=== PATIENT | female | born 1980 | race Caucasian/White ===

== ENCOUNTER 2016-09-10 19:59 | Inpatient (IN) | payer OTHER ==
--- NOTE | ~2016-09-10 | CO ---
Unit #: [id number] #: [id number] Patient: PEG MURDOCK [id number] [place] [address] [id number] MR#: [id number] NAME: PEG MURDOCK ROOM: P122 Age: 36 Sex: F Admission Date: 09/10/2016 : 1980 Attending Physician: George Rivera M.D. Primary Care Physician: Sailaja Schwab M.D. Consultation Date: 09/11/2016 CONSULTATION REPORT SUBJECTIVE Peg Patterson is a 36-year-old who gives history of migraine headaches. She usually takes Tylenol and has not been prescribed anything more for these headaches. On one prior admission, she was started on Fioricet and she is requesting that at this time. We have been asked to assess and give recommendations. Headaches are described as starting in her neck as tension working their way up over to involve her whole head. She denies any visual problems or light sensitivity. She has no nausea or vomiting associated with these headaches. OBJECTIVE Please see H and P dated 09/11/2016. ASSESSMENT History of migraine headaches. PLAN The patient has Tylenol p.r.n. We will continue this. Dictated by... Kinsey Borja PAltonAMagaly. for Dillon Renae/charo TD: 09/15/2016 13:10 JOB #: [id number] CONSULTATION REPORT Page 1 of 1 X Kinsey Borja CONSULTATION REPORT
--- NOTE | ~2016-09-10 | PN ---
Unit #: [id number] #: [id number] Patient: PEG PATEL [id number] [facility] [address] [place] [address] [id number] MR#: [id number] NAME: PEG PATEL ROOM: P122 Age: 36 Sex: F Admission Date: 09/10/2016 : 1980 Attending Physician: George Rivera M.D. Admitting Physician: George Rivera M.D. Primary Care Physician: Dillon Taylor PROGRESS NOTES DATE 09/13/2016 DISCUSSION Ms. Patel is a 36-year-old white female who was seen today and chart was reviewed and case was discussed with the staff. She reports doing much better and has been showing improvement in her depression and anxiety. Meanwhile, she has been cooperative with treatment recommendations and has been taking medications and tolerating them fairly well with no reported side effects. MENTAL STATUS EXAMINATION Young white female who was casually dressed with fair personal hygiene and appears to be in no acute distress or discomfort. She was awake and alert on interaction with intact orientation. Her mood was anxious and depressed with congruent affect. Her speech is slow and goal-directed. She denies any suicidal or homicidal ideations and also denies any auditory or visual hallucinations. Her insight and judgement remains slightly impaired. TREATMENT PLAN 1. Will continue on current medications and treatment protocol. Will monitor her response to the medications and make further adjustments as needed. 2. Will continue to follow up. Dictated by... iDllon Vences/jean TD: 09/13/2016 17:37 JOB #: [id number] Unit #: [id number] #: [id number] Patient: PEG PATEL PROGRESS NOTES Page 1 of 1 X George Rivera MD X PROGRESS NOTE
--- NOTE | ~2016-09-10 | PA ---
Unit #: [id number] #: [id number] Patient: PEG PATEL [id number] [facility] [address] [place] [address] [id number] I MR#: [id number] NAME: PEG PATEL ROOM: P122 Age: 36 Sex: F Admission Date: 09/10/2016 : 1980 Date of Assessment: 09/11/2016 Attending Physician: George Rivera M.D. Admitting Physician: George Rivera M.D. Primary Care Physician: Sailaja Schwab M.D. PSYCHIATRIC ASSESSMENT DATE OF SERVICE 09/11/2016. IDENTIFYING DATA Ms. Patel is a 36-year-old single disabled white female, who is a resident of [place], [place], and is known to us from previous multiple encounters and was self-referred to the hospital after she was brought in by crisis intervention team of [facility] [employer]. CHIEF COMPLAINT "I'm depressed and I'm angry." HISTORY OF PRESENT ILLNESS A 36-year-old white female who reports that she has been experiencing suicidal ideation, has been having increasing aggressive behavior since her medications were changed at a local [facility] and she is currently on Zyprexa instead of Thorazine and she has been mean and violent to her family. The patient reports that she has been experiencing gabe with lack of sleep and reports that she is under the constant care of her psychiatrist and therapist at [facility] and who currently having suicidal thoughts with a plan and was unable to contract for safety and also reports significant mood swings, anxiety, agitation, irritability, impulsivity, and was seen to be danger to self and others and therefore, recommendation for inpatient level of care was made and the patient was stepped up to the inpatient unit. SUBSTANCE ABUSE HISTORY The patient reports history of cannabis and cocaine, and opioid and benzodiazepine abuse in the past, but denies any current regular substance abuse issues. PAST PSYCHIATRIC HISTORY The patient has had history of multiple [facility] and other facilities and has been diagnosed and treated for bipolar disorder and is currently on combination of psychotropic medications. PAST MEDICAL HISTORY The patient's medical history is significant for obesity and diabetes mellitus. ALLERGIES Unit #: [id number] #: [id number] Patient: PEG PATEL No known medication allergies. PERSONAL AND SOCIAL HISTORY A 36-year-old white female who reports that she is single, disabled, and lives at home with her family and has fairly decent social support system. MENTAL STATUS EXAMINATION Young white female who was casually dressed with fair personal hygiene, appears to be in no acute distress or discomfort. She was awake and alert on interaction with intact orientation to time, place, and person. Her mood was anxious and depressed with a congruent affect. Her speech was slow and goal directed. Her thought processes were disorganized with some looseness of associations and suicidal ideations. Her insight and judgment remain significantly impaired. DIAGNOSTIC IMPRESSION Psychiatric: Bipolar disorder, most recent episode depressed, recurrent, moderate, without psychotic features. Medical: Diabetes mellitus and obesity. Stressors: Moderate psychosocial stressors. TREATMENT PLAN 1. The patient has presented with history of mood disorder and has been decompensating and will need inpatient hospitalization for safety and stabilization. We will start her back on her home medications. We will adjust the medications and monitor response. 2. Supportive therapy was provided to the patient. 3. Safe, structured, and nourishing environment will be provided. ESTIMATED LENGTH OF STAY 5 to 7 days. ABILITY TO HELP SELF Limited. WILLINGNESS TO HELP SELF The patient appears to be willing to help self. STRENGTHS 1. Communicative. 2. Cooperative. PROBLEMS 1. Chronic dysphoric symptoms. 2. Poor social support system. DISCHARGE CRITERIA This will be contingent upon the patient's ability to show resolution of her depression and anxiety and her ability to stay safe to herself, particularly after discharge from the hospital. Dictated by... Dillon Vences/charo TD: 09/11/2016 07:57 Unit #: [id number] #: [id number] Patient: PEG PATEL JOB #: [id number] PSYCHIATRIC ASSESSMENT Page 1 of 1 X George Rivera MD X PSYCHIATRIC ASSESSMENT
--- NOTE | ~2016-09-10 | PN ---
Unit #: [id number] #: [id number] Patient: PEG PATEL [id number] [facility] [address] [place] [address] [id number] MR#: [id number] NAME: PEG PATEL ROOM: P122 Age: 36 Sex: F Admission Date: 09/10/2016 : 1980 Attending Physician: George Rivera M.D. Admitting Physician: George Rivera M.D. Primary Care Physician: Dillon Taylor PROGRESS NOTES DATE 09/12/2016 DISCUSSION Ms. Patel is a 36-year-old white female who was seen today and chart was reviewed and case was discussed with the staff. She remains anxious, withdrawn and rather seclusive to herself and has been exhibiting significant depressive symptoms and blunted affect and minimal interaction and social isolation. Meanwhile, she has been cooperative with treatment recommendation. Has been taking medications and tolerating them fairly well with no reported side effects. MENTAL STATUS EXAMINATION Young white female who was casually dressed with fair personal hygiene, appears to be in no acute distress or discomfort. She was awake and alert on interaction with intact orientation. Her mood was anxious with congruent affect. She reports having suicidal ideation but denies any homicidal ideation. Her insight and judgement remains slightly impaired. TREATMENT PLAN 1. We will continue her on her current medications and treatment protocol. We will monitor her response to the medication and make further adjustments as needed. 2. We will continue to follow up. Dictated by... Dillon Vences/madiha TD: 09/13/2016 04:42 JOB #: [id number] Unit #: [id number] #: [id number] Patient: PEG PATEL PROGRESS NOTES Page 1 of 1 X George Rivera MD X PROGRESS NOTE
--- NOTE | ~2016-09-10 | DS ---
Unit #: [id number] #: [id number] Patient: PEG PATEL [id number] [facility] [address] [place] [address] [id number] I MR#: [id number] NAME: PEG PATEL ROOM: P122 Age: 36 Sex: F Admission Date: 09/10/2016 : 1980 Discharge Date: 09/14/2016 Attending Physician: George Rivera M.D. Primary Care Physician: Sailaja Schwab M.D. DISCHARGE SUMMARY IDENTIFYING DATA Ms. Patel is a 36-year-old single disabled white female, who is a resident of [place], [place] and is known to us from previous multiple encounters, was self-referred to the hospital, and was brought to the hospital by crisis intervention team of [facility]. DISCHARGE DIAGNOSES Psychiatric: Bipolar disorder, most recent episode depressed, recurrent, moderate, without psychotic features. Medical: Diabetes mellitus, obesity. Stressors: Moderate psychosocial stressors. HISTORY OF PRESENT ILLNESS Please see initial psychiatric evaluation for details. PAST PSYCHIATRIC HISTORY Please see initial psychiatric evaluation for details. PAST MEDICAL HISTORY Please see initial psychiatric evaluation for details. HOSPITAL COURSE The patient was admitted to the adult psychiatric unit at [facility] and was oriented to the hospital environment. Routine p.r.n. medications were initiated and she was started back on her home medications including her Depakote and Effexor, and Thorazine was added as well. Meanwhile, she was initially seen to be very seclusive to herself and exhibiting significant depressive symptoms, though she was able to show a decent therapeutic response to treatment interventions with improvement in depression and anxiety and was wanting to go home, stating that she has to take care of her mother and that she was not suicidal anymore and was willing to continue treatment on an outpatient basis and as such, it was decided that she will be discharged home and will continue treatment on an outpatient basis. DISCHARGE MEDICATIONS Doxepin 150 mg at bedtime for sleep, Neurontin 800 mg q.i.d. for neuropathy, Depakote 500 mg b.i.d. for mood disorder, Effexor XR 75 mg t.i.d. for anxiety, Glucophage 500 mg b.i.d. for diabetes, Thorazine 50 mg every 6 hours as needed for anxiety, Imitrex 50 mg every 2 hours as needed for migraine headaches, Zestril 2.5 mg a day for hypertension, Lopressor 50 mg b.i.d. for hypertension, Lipitor 20 mg a day for dyslipidemia, Lioresal 10 mg b.i.d. for pain as needed. Unit #: [id number] #: [id number] Patient: PEG PATEL DISCHARGE CONDITION Stable. PROGNOSIS Fair. Dictated by... Dillon Vences/charo TD: 09/14/2016 06:38 JOB #: [id number] DISCHARGE SUMMARY Page 1 of 1 X George Rivera MD X DISCHARGE SUMMARY
--- NOTE | ~2016-09-10 | HP ---
Unit #: [id number] #: [id number] Patient: PEG MURDOCK [id number] [place] [address] [id number] MR#: [id number] NAME: PEG MURDOCK ROOM: P122 Age: 36 Sex: F Admission Date: 09/10/2016 : 1980 Attending Physician: George Rivera M.D. Admitting Physician: George Rivera M.D. Primary Care Physician: Sailaja Schwab M.D. HISTORY AND PHYSICAL HISTORY OF PRESENT ILLNESS Peg Patterson is a 36 year old admitted to [address] [place] [address] with depression and verbalizing wanting to hurt herself. She has had numerous admissions to this facility. PAST MEDICAL HISTORY 1. Morbid obesity 2. High blood pressure 3. Hyperlipidemia 4. History of migraines 5. Degenerative disc disease 6. History of polysubstance abuse 7. ECT 8. Diabetes mellitus 9. History of fatty liver 10. Psoriasis 11. Asthma PAST SURGICAL HISTORY 1. Right hand 2. Appendectomy ALLERGIES Compazine, Phenergan, Toradol, NSAID, BuSpar. The patient is NOT allergic to Imitrex. She tells me that it "increases her anxiety". SOCIAL HISTORY Smokes one pack per day. Denies alcohol. Has a history of illicit substance abuse but denies anything currently. FAMILY HISTORY Medically noncontributory. REVIEW OF SYSTEMS CONSTITUTIONAL: No fever or chills. HEENT: Denies any sore throat, ear pain or runny nose. CARDIOVASCULAR: Denies chest pain, irregular heart rhythm or palpitations. CHEST: Denies shortness of breath or cough. No hemoptysis. GASTROINTESTINAL: Denies nausea, vomiting, diarrhea or chronic constipation. ENDOCRINE: Denies history of increased thirst or urination. No recent significant weight loss or gain. Unit #: [id number] #: [id number] Patient: PEG MURDOCK GENITOURINARY: Denies dysuria, frequency, or hematuria. SKIN: Denies any rashes. HEMATOLOGIC: Denies history of increased bleeding or bruising. MUSCULOSKELETAL: Denies any hot, swollen joints. No generalized muscle pain. NEUROLOGIC: Denies problems with vision or speech. No frequent, severe headaches. No numbness, tingling or weakness in any extremities. Denies loss of bladder or bowel control. CURRENT MEDICATIONS 1. Lipitor 20 mg daily 2. Pheno fibrate 201 mg q.h.s. 3. Doxepin 150 mg q.h.s. 4. Lopressor 50 mg 5. Lisinopril 2.5 mg q day 6. Nicotine patch 14 mg q day 7. Lioresal 10 mg b.i.d. p.r.n. 8. Imitrex p.r.n. 9. Thorazine p.r.n. 10. Effexor 75 mg t.i.d. 11. Depakote 500 mg b.i.d. 12. Neurontin 800 mg q.i.d. 13. Milk of Magnesia p.r.n. 14. Maalox p.r.n. 15. Glucophage 500 mg b.i.d. PHYSICAL EXAMINATION GENERAL: Alert, morbidly obese in no apparent distress. VITAL SIGNS: Blood pressure 108/68, heart rate 80, respirations 16, temperature 98.6. WEIGHT: 321 pounds. HEIGHT: 5'11". SKIN: Warm and dry without rash or lesion. HEENT: Normocephalic. TMs not viewed. Oral and nasal passages clear. Conjunctivae clear. Pupils equal, round and reactive to light and accommodation. Extraocular movements intact. NECK: Supple without lymphadenopathy or thyromegaly. HEART: Regular rate and rhythm without murmur. LUNGS: Clear. ABDOMEN: Soft, nontender. : Not done. EXTREMITIES: No evidence of cyanosis, clubbing or edema. Moves all extremities without focal deficit. NEUROLOGICAL: Grossly within normal limits. Cranial Nerves: II: Visual bauer are intact. III, IV AND : Extraocular movements are intact. Pupils are equal, round and reactive to light. V: Facial sensation is grossly normal. VII: Facial movements and expression are normal. VIII: Auditory acuity grossly intact. IX, X: Uvula is midline. Phonation is normal. XI: Patient shrugs shoulders and turns head normally. XII: Tongue protrudes in the midline. Sensory and Motor Function: Sensory and motor sensation is grossly normal. Motor: moves all extremities well. Coordination: Gait is normal. Deep Tendon Reflexes: Intact. IMPRESSION Psychiatric admission Unit #: [id number] #: [id number] Patient: PEG MURDOCK RECOMMENDATIONS PSYCHIATRIC: Per psychiatrist. MEDICAL: 1. I see no contraindications to participating in facility's activities. 2. We were asked to consider Fioricet for her "migraine headaches". No plans to start this. She does not take this when she is not here. She is not allergic to Imitrex and does have that available should she need anything for a "migraine headache." MEDICAL PROGNOSIS Good. MEDICAL CONDITION Stable. Dictated by... Maggie ElliottAAlton-Brent. for Dillon Renae/madiha TD: 09/11/2016 21:53 JOB #: [id number] HISTORY AND PHYSICAL Page 1 of 1 X Kinsey Borja PA X HISTORY AND PHYSICAL
[2016-09-11 09:52] LABS: BASOPHIL% 0.3 % (0-2.5); EOSINOPHIL# 0.2 X10e3 (0-0.7); EOSINOPHIL% 1.6 % (0.0-7.0); HEMATOCRIT 40.6 % (35.0-45.0); HEMOGLOBIN 13.3 gm/dL (12.0-16.0); LYMPHOCYTE% 37.9 % (17.0-45.0); MEAN CELL VOLUME 93.9 FL (83-96); MEAN CORPUSCULAR HEMOGLOBIN 30.9 PG (28-34); MEAN CORPUSCULAR HGB CONC 32.8 g/dL (30-36); MEAN PLATELET VOLUME 7.7 FL (6.5-11.5); MONOCYTE# 1.1 X10e3 (0-1.0); MONOCYTE% 9.9 % (3.0-12.0); NEUTROPHIL# 5.3 X10e3 (1.5-7.1); NEUTROPHIL% 50.3 % (40-75); PLATELET COUNT 323 X10e3 (140-420); RED BLOOD COUNT 4.32 X10e (3.90-5.30); RED CELL DISTRIBUTION WIDTH 16.1 % (11.0-15.5); WHITE BLOOD COUNT 10.6 X10e3 (4.0-10.5)
[2016-09-11 09:57] LABS: DIFF IND NO
[2016-09-11 10:02] LABS: ALBUMIN SERUM 3.7 g/dL (3.5-5.0); BILIRUBIN,TOTAL 0.6 mg/dL (0.2-2.0); BUN/CREATININE RATIO 13.75; CALCIUM SERUM 8.8 mg/dL (8.4-10.2); CREATININE SERUM 0.8 mg/dL (0.6-1.4); GLOM FILT RATE Estimated 94.9 mL/min (>60); PROTEIN TOTAL SERUM 6.9 g/dL (6.0-8.3)
== END 2016-09-14 09:27 | disposition home or self-care (01) | DRG 885 ==
LOC: P1S 19:59
PROVIDERS: Psychiatry & Neurology Psychiatry
DX: F31.32 Bipolar disorder, current episode depressed, moderate (principal); E66.01 Morbid (severe) obesity due to excess calories; R45.851 Suicidal ideations; E11.9 Type 2 diabetes mellitus without complications; E66.9 Obesity, unspecified; I10 Essential (primary) hypertension; E78.5 Hyperlipidemia, unspecified; L40.9 Psoriasis, unspecified; J45.909 Unspecified asthma, uncomplicated; F41.9 Anxiety disorder, unspecified
CPT/HCPCS: 80053; 80164; 82140; 82947; 83036; 84703; 85025